=== PATIENT | female | born 1945 | race Caucasian/White ===

== ENCOUNTER → 2019-11-26 | Outpatient (CLI) | payer MEDICARE, OTHER ==
[~2019-11-26] MED LIST: Aspir 8181 MG PO; BISA5EC PO; CALC.25 PO; Citrate Of Mag300 ML PO; DICL75ER PO; EUTHYROX25 MC1 PO; LANS30EC PO; LANSOPRAZOLE30 MG PO; LEVSOD125; LOSARTAN-HCTZ1 EAC5 PO; MIRT15 PO; MIRT15ST MM; OMEP40CA12 PO; Prevacid Soluta30 MG JT; ROSU10TA PO; ROSUVASTATIN CA20 MG PO; SERT50 PO; ZOLOFT100 M1 PO
== END | disposition home or self-care (01) ==
LOC: LAB SHORT 08:08 → PLD 08:08
DX: D22.71 Melanocytic nevi of right lower limb, including hip (principal)
CPT/HCPCS: 88305

== ENCOUNTER 2019-11-30 18:59 | Emergency (ER) | payer OTHER, MEDICARE ==
[~2019-11-30] VITALS: Ht 162.6 cm; Wt 95.2 kg
[~2019-11-30 18:59] MED LIST changes: -CALC.25 PO; -EUTHYROX25 MC1 PO; -LANSOPRAZOLE30 MG PO; -ROSUVASTATIN CA20 MG PO; -ZOLOFT100 M1 PO
[2019-11-30] MEDS ORDERED: LANSOPRAZOLE30 MG PO (19:21)
[2019-11-30] MEDS ORDERED: EUTHYROX25 MC1 PO (19:21)
[2019-11-30] MEDS ORDERED: CALC.25 PO (19:21)
[2019-11-30] MEDS ORDERED: ZOLOFT100 M1 PO (19:22)
[2019-11-30] MEDS ORDERED: ROSUVASTATIN CA20 MG PO (19:22)
== END 2019-11-30 21:30 | disposition home or self-care (01) ==
LOC: ER 18:59
DX: S51.822A Laceration with foreign body of left forearm, initial encounter (principal); S16.1XXA Strain of muscle, fascia and tendon at neck level, initial encounter; S09.90XA Unspecified injury of head, initial encounter; Z87.81 Personal history of (healed) traumatic fracture; Z79.82 Long term (current) use of aspirin; Z79.899 Other long term (current) drug therapy; V48.9XXA Unspecified car occupant injured in noncollision transport accident in traffic accident, initial encounter; Y92.410 Unspecified street and highway as the place of occurrence of the external cause
CPT/HCPCS: 12001; 70450; 71045; 72125; 73080; 73090; 99285-25; A9270

== ENCOUNTER → 2020-01-11 | Outpatient (CLI) | payer MEDICARE, OTHER ==
[~2020-01-11] MED LIST changes: +CALC.25 PO; +EUTHYROX25 MC1 PO; +LANSOPRAZOLE30 MG PO; +ROSUVASTATIN CA20 MG PO; +ZOLOFT100 M1 PO
== END | disposition home or self-care (01) ==
LOC: LAB SHORT 07:47 → PLD 07:47
DX: L91.8 Other hypertrophic disorders of the skin (principal)
CPT/HCPCS: 88304; 88305

== ENCOUNTER 2021-10-11 08:30 | Day surgery (SDC) | payer OTHER ==
[~2021-10-11] VITALS: Ht 162.6 cm; Wt 99.4 kg
--- NOTE | 2021-10-11 09:41 | NUR ---
History, Chart, Medications and Allergies reviewed before start of procedure. Patient confirms NPO status and agrees with scheduled surgery. Lungs clear T/O to Auscultation. Patient States Post-Procedure ride home has been arranged with her daughter.
--- NOTE | 2021-10-11 09:47 | NUR ---
10/11/21 0947 Hieu Mathew HISTORY, CHART, MEDICATIONS AND ALLERGIES REVIEWED BEFORE START OF PROCEDURE. PATIENT CONFIRMS NPO STATUS AND AGREES WITH SCHEDULED PROCEDURE. 3-LEAD EKG REVIEWED WITH PHYSICIAN PRIOR TO START OF PROCEDURE. MONITOR INTACT WITH CONTINUOUS PULSE OXIMETRY,CAPNOGRAPHY, 3-LEAD EKG, INTERMITTENT BP. SUPPLEMENTAL O2 TO BE TITRATED THROUGHOUT PROCEDURE TO MAINTAIN O2 SATURATION ABOVE 90%. PATIENT DETERMINED TO BE ASA APPROPRIATE FOR PROPOFOL SEDATION PRIOR TO START OF PROCEDURE BY DR. HURD.
--- NOTE | 2021-10-11 10:48 | NUR ---
Ambulatory in Day Surgery Discharge instructions reviewed with patient. Patient verbalizes understanding. Copy given to patient to take home. Discharged via wheelchair to private car for ride home.
== END 2021-10-11 23:48 | disposition home or self-care (01) ==
LOC: ORSCMMR 08:30 → ORD 09:30 → ORSCMMR 09:30
PROVIDERS: Internal Medicine Gastroenterology
PROC: 0DBK8ZX Excision of Ascending Colon, Via Natural or Artificial Opening Endoscopic, Diagnostic (ICD-10-PCS; principal; 2021-10-11 09:30)
PROC: 0DBN8ZX Excision of Sigmoid Colon, Via Natural or Artificial Opening Endoscopic, Diagnostic (ICD-10-PCS; principal; 2021-10-11 09:30)
DX: R19.5 Other fecal abnormalities (principal); I10 Essential (primary) hypertension; E03.9 Hypothyroidism, unspecified; E78.00 Pure hypercholesterolemia, unspecified; Z79.899 Other long term (current) drug therapy; Z79.82 Long term (current) use of aspirin; Z87.891 Personal history of nicotine dependence; E66.9 Obesity, unspecified; Z68.38 Body mass index [BMI] 38.0-38.9, adult
CPT/HCPCS: 88305; J2704; J7120